=== PATIENT | female | born 1980 ===

== ENCOUNTER 2016-07-24 15:50 | Emergency (ER) | payer MEDICAID ==
--- NOTE | 2016-08-03 08:39 | ER ---
ADMIT: 07/24/2016 RM/LOC: ER [facility] MR#: [id number] [facility] [address] [place] [id number] KELL OLSON LUCIANO [address] [place] [address] Emergency Room Report SEX: F AGE: 36 : 1980 DATE: 07/24/2016 A 36-year-old who comes with nausea and tingling in her hands and feet and around her mouth for the past day or two. She has no past medical history. See T-sheet for history and physical. The patient is diagnosed with nausea and anxiety. She was given Zofran with resolution of nausea, diphenhydramine to help with the tingling. Subsequent discharge diagnosis is nausea. Instructed to follow up with primary doctor as needed. Sameer Soria MD/ estee JOB #: [id number] CC: Stef Rm MD, Attending Physician UNKNOWN, Family Physician
== END 2016-07-24 17:30 | disposition home or self-care (01) ==
LOC: ER 15:50
DX: F41.9 Anxiety disorder, unspecified (principal); R11.0 Nausea